=== PATIENT | male | born 1995 | race Caucasian/White ===

== ENCOUNTER 2018-07-18 12:09 | Emergency (ER) | payer OTHER ==
[2018-07-18] MEDS ORDERED: DIPH/PERTUSS(ACELL)/TETANUS VAC/PF 0.5 ML SYR (>=10YO) IM ONE (12:23)
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
--- NOTE | 2018-07-18 12:51 | RADIOLOGY REPORT (SQ) ---
EXAM DESCRIPTION: CT CERVICAL SPINE WITHOUT; CT HEAD WITHOUT; CT FACIAL AREA WITHOUT COMPLETED DATE/TIME: 07/18/2018 12:38 pm REASON FOR STUDY: fall, facial trauma, +etoh COMPARISON: None. TECHNIQUE: Axial images acquired through the brain, face, cervical spine without intravenous contras t. Images reviewed with brain, subdural, lung, soft tissue and bone windows. Reconstructed coronal and sagittal MPR images reviewed. Images stored on PACS. All CT scanners at this facility use dose modulation, iterative reconstruction, and/or weight based d osing when appropriate to reduce radiation dose to as low as reasonably achievable (ALARA). [facility]: Dose Right [facility]: CareDose [facility]: Dose Right [facility]: Teradose 4D [facility]: [employer] RADIATION DOSE: CT Rad equipment meets quality standard of care and radiation dose reduction techniq ues were employed. CTDIvol: 21.0 mGy. DLP: 530 mGy-cm.; CT Rad equipment meets quality standard of ca re and radiation dose reduction techniques were employed. CTDIvol: 53.2 mGy. DLP: 1070 mGy-cm.; CT Ra d equipment meets quality standard of care and radiation dose reduction techniques were employed. CTD Ivol: 30.4 mGy. DLP: 667 mGy-cm. mGy. LIMITATIONS: None. FINDINGS: Brain: Normal without evidence of hemorrhage or fracture. No hydrocephalus. 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 Orbits intact. Face: No fracture. Clear paranasal sinuses. Orbits intact. Right frontal scalp laceration without foreign body. Cervical spine: Normal alignment. No fracture. Clear lung apices. IMPRESSION: 1. No acute intracranial abnormality. 2. No facial fracture. 3. No cervical spine fracture. TECHNICAL DOCUMENTATION: JOB ID: [id number] Quality ID # [id number]: Final reports with documentation of one or more dose reduction techniques (e.g., Au tomated exposure control, adjustment of the mA and/or kV according to patient size, use of iterative reconstruction technique) 2010 [employer]- All Rights Reserved Reading location - IP/workstation name: [email or web address]
--- NOTE | 2018-07-18 12:51 | RADIOLOGY REPORT (SQ) ---
EXAM DESCRIPTION: CT CERVICAL SPINE WITHOUT; CT HEAD WITHOUT; CT FACIAL AREA WITHOUT COMPLETED DATE/TIME: 07/18/2018 12:38 pm REASON FOR STUDY: fall, facial trauma, +etoh COMPARISON: None. TECHNIQUE: Axial images acquired through the brain, face, cervical spine without intravenous contras t. Images reviewed with brain, subdural, lung, soft tissue and bone windows. Reconstructed coronal and sagittal MPR images reviewed. Images stored on PACS. All CT scanners at this facility use dose modulation, iterative reconstruction, and/or weight based d osing when appropriate to reduce radiation dose to as low as reasonably achievable (ALARA). [facility]: Dose Right [facility]: CareDose [facility]: Dose Right [facility]: Teradose 4D [facility]: [employer] RADIATION DOSE: CT Rad equipment meets quality standard of care and radiation dose reduction techniq ues were employed. CTDIvol: 21.0 mGy. DLP: 530 mGy-cm.; CT Rad equipment meets quality standard of ca re and radiation dose reduction techniques were employed. CTDIvol: 53.2 mGy. DLP: 1070 mGy-cm.; CT Ra d equipment meets quality standard of care and radiation dose reduction techniques were employed. CTD Ivol: 30.4 mGy. DLP: 667 mGy-cm. mGy. LIMITATIONS: None. FINDINGS: Brain: Normal without evidence of hemorrhage or fracture. No hydrocephalus. 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 Orbits intact. Face: No fracture. Clear paranasal sinuses. Orbits intact. Right frontal scalp laceration without foreign body. Cervical spine: Normal alignment. No fracture. Clear lung apices. IMPRESSION: 1. No acute intracranial abnormality. 2. No facial fracture. 3. No cervical spine fracture. TECHNICAL DOCUMENTATION: JOB ID: [id number] Quality ID # [id number]: Final reports with documentation of one or more dose reduction techniques (e.g., Au tomated exposure control, adjustment of the mA and/or kV according to patient size, use of iterative reconstruction technique) 2010 [employer]- All Rights Reserved Reading location - IP/workstation name: [email or web address]
--- NOTE | 2018-07-18 12:51 | RADIOLOGY REPORT (SQ) ---
EXAM DESCRIPTION: CT CERVICAL SPINE WITHOUT; CT HEAD WITHOUT; CT FACIAL AREA WITHOUT COMPLETED DATE/TIME: 07/18/2018 12:38 pm REASON FOR STUDY: fall, facial trauma, +etoh COMPARISON: None. TECHNIQUE: Axial images acquired through the brain, face, cervical spine without intravenous contras t. Images reviewed with brain, subdural, lung, soft tissue and bone windows. Reconstructed coronal and sagittal MPR images reviewed. Images stored on PACS. All CT scanners at this facility use dose modulation, iterative reconstruction, and/or weight based d osing when appropriate to reduce radiation dose to as low as reasonably achievable (ALARA). [facility]: Dose Right [facility]: CareDose [facility]: Dose Right [facility]: Teradose 4D [facility]: [employer] RADIATION DOSE: CT Rad equipment meets quality standard of care and radiation dose reduction techniq ues were employed. CTDIvol: 21.0 mGy. DLP: 530 mGy-cm.; CT Rad equipment meets quality standard of ca re and radiation dose reduction techniques were employed. CTDIvol: 53.2 mGy. DLP: 1070 mGy-cm.; CT Ra d equipment meets quality standard of care and radiation dose reduction techniques were employed. CTD Ivol: 30.4 mGy. DLP: 667 mGy-cm. mGy. LIMITATIONS: None. FINDINGS: Brain: Normal without evidence of hemorrhage or fracture. No hydrocephalus. 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 Orbits intact. Face: No fracture. Clear paranasal sinuses. Orbits intact. Right frontal scalp laceration without foreign body. Cervical spine: Normal alignment. No fracture. Clear lung apices. IMPRESSION: 1. No acute intracranial abnormality. 2. No facial fracture. 3. No cervical spine fracture. TECHNICAL DOCUMENTATION: JOB ID: [id number] Quality ID # [id number]: Final reports with documentation of one or more dose reduction techniques (e.g., Au tomated exposure control, adjustment of the mA and/or kV according to patient size, use of iterative reconstruction technique) 2010 [employer]- All Rights Reserved Reading location - IP/workstation name: [email or web address]
[2018-07-18] MEDS ORDERED: LIDOCAINE 1% INJ-PF (10 MG/ML) 30 ML SDV INJ ONE (13:18)
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
[2018-07-18 14:24] VITALS: BP 136/86
== END 2018-07-18 14:23 | disposition home or self-care (01) ==
LOC: ER 12:09
DX: S01.111A Laceration without foreign body of right eyelid and periocular area, initial encounter (principal); R51 Headache; Y04.0XXA Assault by unarmed brawl or fight, initial encounter; Y92.480 Sidewalk as the place of occurrence of the external cause; F17.200 Nicotine dependence, unspecified, uncomplicated; Z23 Encounter for immunization
CPT/HCPCS: 99283; 90471; 70450; 70486; 72125; 90715; 12013; L0120; J3490

== ENCOUNTER 2019-03-12 15:35 | Emergency (ER) | payer OTHER ==
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
[2019-03-12 16:25] VITALS: BP 140/84
== END 2019-03-12 16:15 | disposition home or self-care (01) ==
LOC: ER 15:35
DX: R21 Rash and other nonspecific skin eruption (principal); F17.210 Nicotine dependence, cigarettes, uncomplicated
CPT/HCPCS: 99282; 99406